=== PATIENT | female | born 1995 | race Two or more races ===

== ENCOUNTER 2020-05-28 22:05 | Emergency (ER) | payer OTHER ==
[~2020-05-28] VITALS: Ht 149.9 cm; Wt 0.5 kg
[2020-05-29] MEDS ORDERED: DOLOGESIC 500-1 EACH PO (03:16)
[2020-05-30] MEDS ORDERED: ZITHROMAX500 MG PO (16:37)
== END 2020-05-29 03:58 | disposition home or self-care (01) ==
LOC: ER 22:05
DX: B34.9 Viral infection, unspecified (principal); M79.18 Myalgia, other site

== ENCOUNTER 2020-05-30 10:26 | Emergency (ER) | payer OTHER ==
[~2020-05-30] VITALS: Ht 149.9 cm; Wt 60.3 kg
[~2020-05-30 10:26] MED LIST: DOLOGESIC 500-1 EACH PO
[2020-05-30] MEDS ORDERED: ZITHROMAX500 MG PO (16:37)
== END 2020-05-30 16:57 | disposition home or self-care (01) ==
LOC: ER 10:26
DX: J31.2 Chronic pharyngitis (principal); B34.9 Viral infection, unspecified; R50.9 Fever, unspecified